=== PATIENT | female | born 2000 | race Asian ===

== ENCOUNTER 2022-06-08 07:57 | Emergency (ER) | payer OTHER ==
[~2022-06-08] VITALS: Ht 165.1 cm; Wt 58.1 kg
[2022-06-08 08:05] VITALS: BP 114/71
[2022-06-08] MEDS ORDERED: CIPR500T4 PO (08:47)
[2022-06-08 08:55] VITALS: BP 114/71
== END 2022-06-08 08:55 | disposition home or self-care (01) ==
LOC: MED 07:57
DX: R00.2 Palpitations (principal); N39.0 Urinary tract infection, site not specified
CPT/HCPCS: 81002; 81025; 93005; 99283